=== PATIENT | female | born 1980 | race Asian ===

== ENCOUNTER 2016-12-26 21:14 | Outpatient (CLI) | payer OTHER | END 2016-12-26 21:18 | disposition short-term general hospital (02) | LOC: AMB 21:14 | DX: S20.212A Contusion of left front wall of thorax, initial encounter (principal); S30.0XXA Contusion of lower back and pelvis, initial encounter; S40.011A Contusion of right shoulder, initial encounter; V43.52XA Car driver injured in collision with other type car in traffic accident, initial encounter; Y92.89 Other specified places as the place of occurrence of the external cause | CPT/HCPCS: A0425; A0429 ==

== ENCOUNTER 2016-12-26 21:46 | Emergency (ER) | payer OTHER ==
[~2016-12-26] VITALS: Ht 167.6 cm; Wt 104.3 kg
[2016-12-27 00:12] VITALS: BP 148/79; TEMP 98.2
== END 2016-12-27 00:13 | disposition home or self-care (01) ==
LOC: ED 21:46
DX: S20.212A Contusion of left front wall of thorax, initial encounter (principal); S30.0XXA Contusion of lower back and pelvis, initial encounter; S40.011A Contusion of right shoulder, initial encounter; V43.52XA Car driver injured in collision with other type car in traffic accident, initial encounter; Y93.89 Activity, other specified; Y92.89 Other specified places as the place of occurrence of the external cause; Y99.8 Other external cause status; M15.8 Other polyosteoarthritis; S20.211A Contusion of right front wall of thorax, initial encounter
CPT/HCPCS: 99283

== ENCOUNTER 2017-11-04 09:00 | Outpatient (CLI) | payer OTHER ==
[2017-11-04 10:40] LABS: PLATELET COUNT 388 K/uL (152-353)
== END 2017-11-04 19:54 | disposition home or self-care (01) ==
LOC: LABW 09:00
PROVIDERS: Physician Assistant
DX: I10 Essential (primary) hypertension (principal); E11.65 Type 2 diabetes mellitus with hyperglycemia; E03.8 Other specified hypothyroidism
CPT/HCPCS: 36415; 80053; 80061; 83036; 84439; 84443; 85027

== ENCOUNTER 2018-02-16 11:27 | Outpatient (CLI) | payer OTHER | END 2018-02-16 19:50 | disposition home or self-care (01) | LOC: MRI 11:27 | DX: M54.5 Low back pain (principal); M54.16 Radiculopathy, lumbar region ==

== ENCOUNTER 2019-06-30 19:06 | Emergency (ER) | payer OTHER ==
[~2019-06-30] VITALS: Ht 160 cm; Wt 102.1 kg
[2019-06-30] MEDS ORDERED: METF500T PO (19:20)
[2019-06-30 20:36] LABS: PLATELET COUNT 338 K/uL (152-353)
[2019-06-30 20:39] LABS: POTASSIUM 3.8 mmol/L (3.6-5.2)
[2019-06-30 21:29] VITALS: BP 159/81; TEMP 99.2
== END 2019-06-30 21:29 | disposition home or self-care (01) ==
LOC: ED 19:06
PROVIDERS: Emergency Medicine
DX: M25.562 Pain in left knee (principal)
CPT/HCPCS: 36415; 80053; 85027; 85379; 96372; 99283; J1885

== ENCOUNTER 2020-08-17 09:58 | Outpatient (CLI) | payer OTHER ==
[~2020-08-17 09:58] MED LIST: METF500T PO
== END 2020-08-17 20:10 | disposition home or self-care (01) ==
LOC: RAD 09:58
PROVIDERS: ATTEND Internal Medicine Rheumatology
DX: M06.4 Inflammatory polyarthropathy (principal)

== ENCOUNTER 2020-10-03 10:05 | Outpatient (CLI) | payer OTHER | END 2020-10-03 21:32 | disposition home or self-care (01) | LOC: RAD 10:05 | PROVIDERS: ATTEND Nurse Practitioner Family | DX: D50.9 Iron deficiency anemia, unspecified (principal); M06.4 Inflammatory polyarthropathy; M79.7 Fibromyalgia; R53.83 Other fatigue; R76.0 Raised antibody titer ==

== ENCOUNTER 2020-11-08 09:56 | Outpatient (CLI) | payer OTHER | END 2020-11-08 21:07 | disposition home or self-care (01) | LOC: INF 09:56 | PROVIDERS: ATTEND Internal Medicine | DX: Z23 Encounter for immunization (principal) | CPT/HCPCS: 96372 ==

== ENCOUNTER 2020-12-05 09:39 | Outpatient (CLI) | payer OTHER | END 2020-12-05 20:14 | disposition home or self-care (01) | LOC: INF 09:39 | PROVIDERS: ATTEND Internal Medicine | DX: Z23 Encounter for immunization (principal) | CPT/HCPCS: 96372 ==